=== PATIENT | male | born 1985 | race Caucasian/White ===

== ENCOUNTER 2017-01-04 18:28 | Emergency (ER) | payer MEDICAID ==
[2017-01-04 18:38] VITALS: TEMP 98.3
--- NOTE | 2017-01-04 19:00 | C.PDOC ---
History Of Present Illness 31 YO MALE COME IN FOR EVALUATION OF PRURITIS INTERMITTENT FOR PAST FEW WEEKS. PT REPORTS, HAD UNPROTECTED SEX 2 MONTH AGO " DID NOT HAVE TIME TO FOLLOW UP AND NOW IM CURIOUS". OTHERWISE, PT DENIES NOTED RASH TO BODY, RECENT ILLNESS OR MEDICATION USE, DENIES PREVIOUS HX OF ALLERGY, DENIES FEVER, CHILLS, HEADACHE, DIZZINESS, DROOLING, DYSPHAGIA, DYSPNEA, WHEEZING, SOB, ABD. PAIN, V/D, BACK PAIN, UTI SX, PENILE LESIONS, TESTICULAR PAIN OR SWELLING. AMBULATE TO ED FOR EVALUATION, NOT IN ANY APPARENT DISTRESS. Time Seen by Provider: 01/04/17 18:40 Chief Complaint (Nursing): Abnormal Skin Integrity History Per: Patient History/Exam Limitations: no limitations Onset/Duration Of Symptoms: Other (few weeks) Current Symptoms Are (Timing): Still Present Quality Of Symptoms: Itching Severity: Mild Pain Scale Rating Of: 3 Recent travel outside of the [place]: No Past Medical History Reviewed: Historical Data, Nursing Documentation, Vital Signs Vital Signs: Last Vital Signs Temp 98.3 F 01/04/17 18:37 Pulse 86 01/04/17 18:37 Resp 17 01/04/17 18:37 BP 131/80 01/04/17 18:37 Pulse Ox 97 01/04/17 19:34 - Medical History PMH: No Chronic Diseases Family History: States: Unknown Family Hx - Social History Hx Tobacco Use: No (UNKNOWN) Hx Alcohol Use: Yes (SOC every wkend) Hx Substance Use: Yes (MARIJUANA) - Immunization History Hx Tetanus Toxoid Vaccination: No Hx Influenza Vaccination: No Hx Pneumococcal Vaccination: No Review Of Systems Except As Marked, All Systems Reviewed And Found Negative. Constitutional: Negative for: Fever, Chills, Other (dysphagia) Respiratory: Negative for: Shortness of Breath, Wheezing, Other (dyspnea) Gastrointestinal: Negative for: Vomiting, Abdominal Pain, Diarrhea Genitourinary: Negative for: Dysuria, Hematuria Musculoskeletal: Negative for: Back Pain Skin: Negative for: Rash Neurological: Negative for: Weakness, Numbness, Headache, Dizziness, Other ( drooling) Physical Exam - Physical Exam Appears: Well, No Acute Distress Skin: Normal Color, Warm, Dry, No Rash Eye(s): bilateral: PERRL Nose: No Discharge Oral Mucosa: Moist, No Drooling Tongue: No Lesions Throat: No Erythema, No Exudate, No Drooling, Other (Uvula midine, no edema.) Neck: Normal Cardiovascular: Rhythm Regular Respiratory: No Stridor, No Wheezing Gastrointestinal/Abdominal: Normal Exam, Soft, No Tenderness, No Distention, No Guarding Back: No CVA Tenderness Male Genital: Other (refused) Extremity: No Pedal Edema, No Deformity Neurological/Psych: Oriented x3, Normal Speech ED Course And Treatment O2 Sat by Pulse Oximetry: 97 (room air) Pulse Ox Interpretation: Normal Progress Note: On re-evaluation, pt is afebrile, hemodynamicaly stable. Non- toxic. Asymptomatic. ENT: No acute findings. ABd: benign. Skin intact. Neurologicaly intact. UA results review and appears normal. GC probe- pending. Pt advised and ref. to F/u with Clinc in 2-3 days for re-eavl. return if any new changes. Disposition Counseled Patient/Family Regarding: Diagnosis, Need For Followup - Disposition Referrals: [facility] [Outside] Disposition: HOME/ ROUTINE Disposition Time: 19:00 Condition: STABLE Additional Instructions: Follow up with PMD at Clinic in 2-3 days for further evaluation as need return if any new changes. Instructions: Normal Exam (ED) - Clinical Impression Clinical Impression: Normal exam
[2017-01-04 19:49] LABS: RBC URINE 1 /hpf (0-3); URINE BACTERIA RARE (<OCC); URINE BILIRUBIN NEGATIVE (NEGATIVE); URINE BLOOD NEGATIVE (NEGATIVE); URINE COLOR Yellow (YELLOW); URINE GLUCOSE (UA) NORMAL (Normal); URINE KETONE NEGATIVE (NEGATIVE); URINE LEUKOCYTE ESTERASE NEG Leu/uL (Negative); URINE PROTEIN NEGATIVE (NEGATIVE); URINE UROBILINOGEN NORMAL mg/dL (0.2-1.0); WBC URINE 1 /hpf (0-5)
[2017-01-04 20:18] VITALS: BP 124/75; PULSE 78; RESP 18; O2SAT 98
== END 2017-01-04 20:18 | disposition home or self-care (01) ==
LOC: C.ER 18:28 → SUPCPDRO 18:28 → C.ER 20:18
DX: Z00.00 Encounter for general adult medical examination without abnormal findings (principal)

== ENCOUNTER 2017-10-28 02:36 | Emergency (ER) | payer MEDICAID ==
[2017-10-28 02:57] VITALS: O2SAT 97
--- NOTE | 2017-10-28 03:34 | C.PDOC ---
Time Seen by Provider: 10/28/17 03:33 Chief Complaint (Nursing): Substance Abuse History Per: Patient History/Exam Limitations: no limitations Onset/Duration Of Symptoms: Hrs Current Symptoms Are (Timing): Still Present Suicide/Self Injury Attempted (Context): None Modifying Factor(s): Alcohol Severity: None Associated Symptoms: denies: Anger, Anxiety Involuntary Hold By: None Recent travel outside of the [place]: No Additional History Per: Patient Past Medical History Reviewed: Historical Data, Nursing Documentation, Vital Signs Vital Signs: Last Vital Signs Temp 98.1 F 10/28/17 02:54 Pulse 84 10/28/17 02:54 Resp 16 10/28/17 02:54 BP 128/81 10/28/17 02:54 Pulse Ox 97 10/28/17 04:41 Family History: States: No Known Family Hx - Social History Hx Tobacco Use: No (UNKNOWN) Hx Alcohol Use: Yes (SOC every wkend) Hx Substance Use: Yes (MARIJUANA) - Immunization History Hx Tetanus Toxoid Vaccination: No Hx Influenza Vaccination: No Hx Pneumococcal Vaccination: No Review Of Systems Constitutional: Negative for: Fever, Chills Cardiovascular: Negative for: Chest Pain Respiratory: Negative for: Shortness of Breath Gastrointestinal: Negative for: Nausea, Vomiting Musculoskeletal: Negative for: Back Pain Neurological: Negative for: Weakness Psych: Negative for: Anxiety Physical Exam - Physical Exam Appears: Non-toxic, No Acute Distress Skin: Warm, Dry Oral Mucosa: Moist Neck: Supple Chest: Symmetrical Cardiovascular: Rhythm Regular Respiratory: No Rales, No Rhonchi, No Wheezing Gastrointestinal/Abdominal: Soft, No Tenderness Back: No CVA Tenderness Extremity: Normal ROM Neurological/Psych: Oriented x3 Gait: Steady ED Course And Treatment O2 Sat by Pulse Oximetry: 97 Pulse Ox Interpretation: Normal Reevaluation Time: 04:57 Reassessment Condition: Improved Disposition Counseled Patient/Family Regarding: Studies Performed, Diagnosis, Need For Followup - Disposition Referrals: [facility] [Outside] Disposition: HOME/ ROUTINE Disposition Time: 03:33 Condition: FAIR Instructions: Alcohol Abuse and Alcoholism (DC) Forms: [facility] (Yakut) - Clinical Impression Clinical Impression: Alcohol intoxication
[2017-10-28 05:00] VITALS: BP 118/78; PULSE 70; RESP 14; TEMP 97.5
== END 2017-10-28 05:00 | disposition home or self-care (01) ==
LOC: C.ER 02:36
DX: F10.129 Alcohol abuse with intoxication, unspecified (principal)